=== PATIENT | male | born 1965 | race African-American/Black ===

== ENCOUNTER → 2017-03-28 | Outpatient (CLI) | payer OTHER ==
[~2017-03-28] MED LIST: AMLODIPINE BESY10 MG PO; ASPIRIN81 M2 PO; ATORVASTATIN CA10 MG PO; LOSARTAN-HCTZ1 EACH PO
[2017-03-28 14:28] LABS: ALBUMIN 3.8 g/dL (3.4-5.0); ALKALINE PHOSPHATASE 78 U/L (46-116); CHOLESTEROL 229 mg/dL (<200); DIRECT BILIRUBIN 0.1 mg/dL (<0.1-0.3); HDL CHOLESTEROL 43 mg/dL (>40); LDL CHOLESTEROL 160 mg/dL (<100); SGOT 30 U/L (15-37); SGPT 43 U/L (30-65); TC:HDL 5.3 Ratio (Not establshd); TOTAL BILIRUBIN 0.3 mg/dL (<0.1-1.0); TOTAL PROTEIN 7.8 g/dL (6.4-8.2); TRIGLYCERIDE 130 mg/dL (<150); VLDL 26 mg/dL (<40)
[2017-03-28 14:31] LABS: SERUM ASSESSMENT Clear
== END ==
LOC: M.LAB 13:50
PROVIDERS: Nurse Practitioner
DX: E78.00 Pure hypercholesterolemia, unspecified (principal)

== ENCOUNTER → 2019-07-17 | Outpatient (CLI) | payer OTHER | LOC: M.LAB 17:00 | PROVIDERS: ATTEND Internal Medicine Gastroenterology | DX: Z01.812 Encounter for preprocedural laboratory examination (principal); Z12.11 Encounter for screening for malignant neoplasm of colon ==

== ENCOUNTER → 2019-07-23 | Outpatient (CLI) | payer OTHER | LOC: M.LAB 04:36 | PROVIDERS: ATTEND Anesthesiology | DX: E87.6 Hypokalemia (principal) ==